=== PATIENT | female | born 1990 | race Caucasian/White ===

== ENCOUNTER 2017-03-01 18:02 | Emergency (ER) | payer MEDICAID, OTHER ==
[2017-03-01] MEDS: HYDROCODONE/APAP (5/325) TAB PO (20:24)
== END 2017-03-01 20:48 | disposition home or self-care (01) ==
LOC: FTE 18:02
DX: M25.511 Pain in right shoulder (principal); M79.601 Pain in right arm
CPT/HCPCS: 99283; Z7502